=== PATIENT | female | born 1985 | race African-American/Black ===

== ENCOUNTER 2022-04-04 01:36 | Emergency (ER) | payer OTHER ==
[~2022-04-04] VITALS: Ht 177.8 cm; Wt 136.1 kg
--- NOTE | 2022-04-04 01:42 | NUR ---
[id number] FROM HOME C/O SEIZURE. - HEAD TRAUMA. PT A/OX3. TOLERATING R/A WELL WITH NO RESP DISTRESS. CONNECTED PT TO POX AND MONITOR. SAFETY SEIZURE PROTOCOL IN PLACE.
[2022-04-04] MEDS ORDERED: LEVETIRACETAM (250 MG) 250 MG TABLET PO ONE ×2 (01:46→02:00)
--- NOTE | 2022-04-04 01:54 | NUR ---
URINE COLLECTED AND SENT TO LAB
[2022-04-04 02:44] VITALS: BP 110/80
--- NOTE | 2022-04-04 02:44 | NUR ---
Patient discharged to home in stable condition. Written and verbal after care instructions given. Patient verbalizes understanding of instruction.
== END 2022-04-04 02:45 | disposition home or self-care (01) ==
LOC: ER 01:38
DX: G40.909 Epilepsy, unspecified, not intractable, without status epilepticus (principal); F17.200 Nicotine dependence, unspecified, uncomplicated; Z91.199 Patient's noncompliance with other medical treatment and regimen due to unspecified reason